=== PATIENT | male | born 1965 | race Caucasian/White ===

== ENCOUNTER 2017-12-15 15:30 | Emergency (ER) | payer OTHER ==
[2017-12-15] MEDS ORDERED: Diph,Pert(Acell),Tet Vac 0.5 ML SYR IM ONE (15:31)
--- NOTE | 2017-12-15 15:33 | Emergency Department Record ---
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 The needle had exposure to the patient. The surgeon is up to date on Hep B. He is unsure of his tetanus and agrees with update. -: Hour(s) (1) Extremity Location: Left: Hand Place: Work Context: Accidental Associated Symptoms: None Treatments Prior to Arrival: Bandage - [place] Coma Scale Eye Response: (4) Open spontaneously Motor Response: (6) Obeys commands Verbal Response: (5) Oriented [place] Total: 15 - Related Data Home Medications Medication Instructions Recorded Confirmed Last Taken Amlodipine Besylate [Norvasc] 5 mg PO DAILY 12/15/17 12/15/17 1 Day Ago ~12/14/17 Hydrochlorothiazide [Hctz] 12.5 mg PO DAILY 12/15/17 12/15/17 1 Day Ago ~12/14/17 Levothyroxine Sodium [Synthroid] 200 mcg PO DAILY 12/15/17 12/15/17 1 Day Ago ~12/14/17 Losartan Potassium [Cozaar] 100 mg PO DAILY 12/15/17 12/15/17 1 Day Ago ~12/14/17 Allergies Allergy/AdvReac Type Severity Reaction Status Date / Time No Known Drug Allergies Allergy Verified 12/15/17 15:38 Review of Systems Constitutional: Denies: Chills, Fever ENT: Denies: Congestion Respiratory: Denies: Cough Endocrine: Denies: Fatigue Gastrointestinal: Denies: Nausea, Vomiting Genitourinary: Denies: Frequency Skin: Denies: Bruising, Change in color, Rash Neurological: Denies: Headache Psychiatric: Denies: Anxiety Hematological/Lymphatic: Denies: Easy bleeding, Easy bruising Physical Exam - General General Appearance: Alert, Oriented x3, Cooperative, No acute distress Limitations: No limitations - Head Head exam: Atraumatic, Normal inspection - Eye Eye exam: Normal appearance. negative: Conjunctival injection - ENT ENT exam: Normal exam Ear exam: Normal external inspection Nasal Exam: Normal inspection Mouth exam: Normal external inspection - Neck Neck exam: Normal inspection - Rectal Rectal exam: Deferred - exam: Deferred - Extremities Extremities exam: Other (tiny puncture, finger). negative: Normal inspection - Neurological Neurological exam: Alert, Oriented X3 - Psychiatric Psychiatric exam: Normal affect, Normal mood - Skin Skin exam: Dry, Intact, Normal color, Warm Course - Reevaluation(s) Reevaluation #1: tetanus updated 12/15/17 15:52 12/15/17 17:50 The rapid HIV on the patient and source is negative Disposition Disposition: Discharge Clinical Impression: Needle stick injury of finger Disposition: Home, Self-Care Condition: (1) Good Instructions: Needle Stick Injuries (ED) Additional Instructions: Follow up with employee health as instructed Forms: Patient Portal Access Time of Disposition: 15:33 Quality - Quality Measures Quality Measures: N/A - Blood Pressure Screening Does Patient Have Any of the Following: No Blood Pressure Classification: Hypertensive Reading Systolic Measurement: 133 Diastolic Measurement: 110 Screening for High Blood Pressure: < Pre-Hypertensive BP, F/U Documented > [ [id number]] Pre-Hypertensive Follow-up Interventions: Referral to alternative/primary care provider.
[2017-12-16 08:10] LABS: HEP A AB IGM Nonreactive (Nonreactive); HEPATITIS B CORE ANTIBODY,IGM Nonreactive (Nonreactive); HEPATITIS B SURFACE ANTIBODY 17.99 mIU/mL; HEPATITIS B SURFACE ANTIGEN Nonreactive (Nonreactive); HEPATITIS C VIRUS ANTIBODY Nonreactive (Nonreactive)
== END 2017-12-15 15:47 | disposition home or self-care (01) ==
LOC: EEVIPCON 15:30 → ER 15:30
DX: S60.411A Abrasion of left index finger, initial encounter (principal); W45.8XXA Other foreign body or object entering through skin, initial encounter; W22.8XXA Striking against or struck by other objects, initial encounter; W46.0XXA Contact with hypodermic needle, initial encounter; Y93.F9 Activity, other caregiving; Y92.234 Operating room of hospital as the place of occurrence of the external cause; Y99.0 Civilian activity done for income or pay
CPT/HCPCS: 87390; 90715; 96372; 99283